=== PATIENT | female | born 1965 | race Caucasian/White ===

== ENCOUNTER → 2017-01-02 | Outpatient (CLI) | payer MEDICAID, OTHER ==
[~2017-01-02] MED LIST: CLAR1TAB2 PO; CYMB1CAP4 PO; [UNRECOGNIZED DRUG - REMARK]
--- NOTE | 2017-01-03 09:46 | REP ---
MRI RIGHT ANKLE WITHOUT CONTRAST: HISTORY: Chronic pain, twisting injury 3 years ago. Comparison radiographs, June 22, 2016. TECHNIQUE: Sagittal, axial, and coronal imaging planes are utilized for T1, proton density, and T2-weighted scans obtained in the usual fashion with and without fat saturation. MRI FINDINGS: Cortical and medullary bone signal intensity are normal. The plantar arch appears slightly flattened. No occult fracture is seen. The tibial plafond and ankle mortise appear intact. No osteochondral defect lesion is observed. T2-weighted scans demonstrate a small quantity of ankle joint fluid. There is a 0.7 cm collection of fluid adjacent to the distal talus dorsally which could be a tiny ganglion cyst. No subtalar fluid is seen. Plantar fascia appears to be intact and smooth. The Achilles tendon has a normal contour and course and signal intensity. The tibialis posterior, flexor digitorum, and flexor hallucis longus tendons appear intact medially. Laterally, the peroneus longus and brevis tendons have an intact appearance. The anterior talofibular ligament is poorly defined, consistent with prior disruption. The anterior-inferior tibiofibular ligament and the posterior talofibular and posterior inferior tibiofibular ligaments have an intact appearance. Coronal images demonstrate intact deltoid ligamentous complex. The calcaneofibular ligament is not well defined. The exam is otherwise unremarkable. IMPRESSION: 1. Mild pes planus. 2. A 7 mm fluid collection adjacent to the distal talus could be a small ganglion. 3. Evidence of prior disruption of the anterior talofibular ligament. Signed by Gurwinder Garcia MD 01/03/2017 10:14 A
== END ==
LOC: M RAD 18:27
PROVIDERS: ATTEND Orthopaedic Surgery
DX: M25.571 Pain in right ankle and joints of right foot (principal); M79.671 Pain in right foot; M21.41 Flat foot [pes planus] (acquired), right foot

== ENCOUNTER 2017-02-14 11:45 | Outpatient (RCR) | payer MEDICAID, OTHER | END 2017-03-03 | LOC: M PT 11:45 | PROVIDERS: ATTEND Orthopaedic Surgery | DX: Z51.89 Encounter for other specified aftercare (principal); S86.311A Strain of muscle(s) and tendon(s) of peroneal muscle group at lower leg level, right leg, initial encounter; X58.XXXA Exposure to other specified factors, initial encounter; Y92.9 Unspecified place or not applicable; Y93.9 Activity, unspecified; Y99.9 Unspecified external cause status ==

== ENCOUNTER 2017-03-07 13:18 | Outpatient (RCR) | payer OTHER | END 2017-04-03 | LOC: M PT 13:18 | PROVIDERS: ATTEND Orthopaedic Surgery | DX: Z51.89 Encounter for other specified aftercare (principal); S86.311A Strain of muscle(s) and tendon(s) of peroneal muscle group at lower leg level, right leg, initial encounter; X58.XXXA Exposure to other specified factors, initial encounter; Y92.9 Unspecified place or not applicable; Y93.9 Activity, unspecified; Y99.9 Unspecified external cause status ==

== ENCOUNTER 2017-05-31 14:30 | Outpatient (RCR) | payer OTHER | END 2017-06-03 | LOC: M PT 14:30 | PROVIDERS: ATTEND Orthopaedic Surgery | DX: Z51.89 Encounter for other specified aftercare (principal); S86.311D Strain of muscle(s) and tendon(s) of peroneal muscle group at lower leg level, right leg, subsequent encounter; X58.XXXD Exposure to other specified factors, subsequent encounter; Y92.9 Unspecified place or not applicable; Y93.9 Activity, unspecified; Y99.9 Unspecified external cause status ==

== ENCOUNTER 2017-07-02 13:00 | Outpatient (RCR) | payer OTHER | END 2017-07-04 | LOC: M PT 13:00 | PROVIDERS: ATTEND Orthopaedic Surgery | DX: Z51.89 Encounter for other specified aftercare (principal); S86.311D Strain of muscle(s) and tendon(s) of peroneal muscle group at lower leg level, right leg, subsequent encounter; X58.XXXD Exposure to other specified factors, subsequent encounter; Y92.9 Unspecified place or not applicable; Y93.9 Activity, unspecified; Y99.9 Unspecified external cause status ==

== ENCOUNTER 2017-07-05 13:00 | Outpatient (RCR) | payer OTHER | END 2017-08-03 | LOC: M PT 13:00 | PROVIDERS: ATTEND Orthopaedic Surgery | DX: Z51.89 Encounter for other specified aftercare (principal); S86.311D Strain of muscle(s) and tendon(s) of peroneal muscle group at lower leg level, right leg, subsequent encounter; X58.XXXD Exposure to other specified factors, subsequent encounter; Y92.9 Unspecified place or not applicable; Y93.9 Activity, unspecified; Y99.9 Unspecified external cause status ==

== ENCOUNTER 2017-10-19 10:31 | Emergency (ER) | payer MEDICAID, OTHER ==
[~2017-10-19] VITALS: Ht 147.3 cm; Wt 62.3 kg
[2017-10-19 10:32] VITALS: BP 107/76
[2017-10-19] MEDS ORDERED: CYMB60CA3 (10:44)
[2017-10-19] MEDS ORDERED: ZYRT10CA PO (10:44)
[2017-10-19] MEDS ORDERED: [UNRECOGNIZED DRUG - CODE] (10:44)
[2017-10-19] MEDS ORDERED: HYDR-3363 (10:44)
[2017-10-19] MEDS ORDERED: PILO5TAB3 (10:44)
[2017-10-19] MEDS ORDERED: TYLE325C PO (10:58)
== END 2017-10-19 11:05 | disposition home or self-care (01) ==
LOC: M ED 10:31
DX: S00.93XA Contusion of unspecified part of head, initial encounter (principal); S70.11XA Contusion of right thigh, initial encounter; W10.9XXA Fall (on) (from) unspecified stairs and steps, initial encounter; Y92.009 Unspecified place in unspecified non-institutional (private) residence as the place of occurrence of the external cause; Y93.89 Activity, other specified; Y99.8 Other external cause status; F17.210 Nicotine dependence, cigarettes, uncomplicated; F99 Mental disorder, not otherwise specified; Z79.899 Other long term (current) drug therapy; Z88.8 Allergy status to other drugs, medicaments and biological substances; Z88.2 Allergy status to sulfonamides; Z88.1 Allergy status to other antibiotic agents; Z88.5 Allergy status to narcotic agent

== ENCOUNTER → 2017-12-23 | Outpatient (CLI) | payer OTHER, MEDICAID | LOC: M WUC 15:41 | DX: M25.541 Pain in joints of right hand (principal) | CPT/HCPCS: 73130 ==

== ENCOUNTER → 2019-01-10 | Outpatient (CLI) | payer OTHER ==
[~2019-01-10] MED LIST changes: +CYMB60CA3; +HYDR-3363; +PILO5TAB3; +TYLE325C PO; +ZYRT10CA PO; +[UNRECOGNIZED DRUG - CODE]
[2019-01-10 17:12] LABS: BASO % 0.7 % (0.0-1.0); EOS # 0.2 10^3/uL (0.0-0.50); EOS % 4.4 % (0.0-3.0); HEMATOCRIT 41.9 % (36.0-47.0); LYMPH # 1.6 10^3/uL (1.5-4.5); LYMPH % 38.6 % (24.0-44.0); MEAN CORPUSCULAR HEMOGLOBIN 31.3 pg (27.0-33.0); MEAN CORPUSCULAR HGB CONC 33.4 g/dl (32.0-36.5); MEAN CORPUSCULAR VOLUME 93.5 fl (80.0-96.0); MONO # 0.4 10^3/uL (0.0-0.8); MONO % 9.3 % (0.0-5.0); NEUTROPHILS # 1.9 10^3/uL (1.8-7.7); NEUTROPHILS % 46.8 % (36.0-66.0); PLATELET COUNT, AUTOMATED 227 10^3/uL (150-450); RED BLOOD COUNT 4.48 10^6/uL (4.00-5.40); WHITE BLOOD COUNT 4.1 10^3/uL (4.0-10.0)
== END ==
LOC: M LAB 16:30
PROVIDERS: ATTEND Physician Assistant Medical
DX: D72.819 Decreased white blood cell count, unspecified (principal)

== ENCOUNTER → 2019-06-24 | Outpatient (CLI) | payer OTHER ==
--- NOTE | 2019-06-24 15:31 | REP ---
BILATERAL MAMMOGRAM WITH 3D TOMOSYNTHESIS: No comparison studies available. No family history of breast cancer. Tyrer-Cuzick lifetime risk of breast cancer 7.2%. MLO and CC views of the bilateral breasts performed with 3D tomosynthesis. There is mild to moderate fairly symmetrical fibroglandular tissue bilaterally. In the lateral right breast there is an oval nodule which is fairly well circumscribed and appears to contain two small calcifications. Maximum diameter is approximately 8 mm. No other mass is seen bilaterally and there is no other evidence of clustered microcalcifications. IMPRESSION: BIRADS 0: BI-RADS/ACR category 0 mammogram, Incomplete: Need additional imaging evaluation and/or prior mammograms for comparison. Oval fairly well circumscribed nodule outer right breast 8 mm in maximum diameter containing two tiny calcifications. I recommend spot compression views and ultrasound to further evaluate. This mammogram was interpreted with the aid of an FDA-approved computer-aided detection system. The patient states she has not had a clinical breast exam in over a year. The patient letter being requested is M0. Electronically Signed by Rolando Lewis MD 06/26/2019 10:46 A
--- NOTE | 2019-06-24 16:24 | REP ---
HISTORY: Dyspareunia. COMPARISON: 06/18/2017 The prior examination was obtained using transvesical and transvaginal imaging with transvaginal imaging from the prior exam showing uterine myomatous changes. Today's examination was obtained using transvesical technique only. This limits the exam. The uterus measures 6.6 x 2.4 x 3.6 cm. The endometrial echo complex is not abnormally thickened. Its greatest thickness is 2 mm. Both ovaries were normal in size, shape and echo pattern. The right ovary measured 1.9 x 1.5 x 1.5 cm and the left ovary measured 2 x 1.6 x 1.9 cm. No free fluid is seen in the pelvis. The urinary bladder measured 10 x 6 x 9 cm. IMPRESSION: Unremarkable transvesical pelvic ultrasound but with limitations as described above. Electronically Signed by Jason Hinkle DO 06/24/2019 05:20 P
== END ==
LOC: M RAD 12:39
PROVIDERS: ATTEND Advanced Practice Midwife
DX: Z12.31 Encounter for screening mammogram for malignant neoplasm of breast (principal); N94.12 Deep dyspareunia

== ENCOUNTER → 2019-07-14 | Outpatient (CLI) | payer OTHER ==
--- NOTE | 2019-07-14 11:41 | REP ---
DIAGNOSTIC MAMMOGRAM RIGHT BREAST WITH RIGHT BREAST ULTRASOUND: Multiple spot compression views right breast performed. Correlation made with recent baseline mammogram, 06/24/2019. The spot compression views confirm the presence of a smoothly marginated oval nodule in the outer right breast at about the 8-o'clock position, measuring 7-8 mm in maximum diameter. It contains a single well-circumscribed small calcification. Real-time sonographic evaluation of outer right breast performed with special attention paid to the 8-o'clock region. At 9 o'clock, two adjacent small hypoechoic nodules are seen measuring 4 x 3 x 3 mm and 3 x 3 x 3 mm. There is an adjacent oval hypoechoic nodule also seen at the 9-o'clock level measuring 4 x 2 x 4 mm. At 8-o'clock position, there is an oval hypoechoic nodule measuring 5 x 3 x 6 mm, likely corresponding to the mammographic abnormality. IMPRESSION: BIRADS 3: BI-RADS/ACR category 3 mammogram. Probably Benign Findings. ACR 3 probably benign. At 8-o'clock position right breast in the mid third of the breast, there is an oval, well-circumscribed nodule containing a single small well-circumscribed coarse calcification. This is solid by ultrasound. This most likely represents a fibroadenoma. In the adjacent 9-o'clock region, there are three hypoechoic nodules all measuring 3-4 mm in maximum diameter. I suspect these also represent fibroadenomas. I would recommend followup ultrasound in 6 months to ensure stability. The patient letter being requested is M3. Electronically Signed by Rolando Lewis MD 07/15/2019 11:17 A
== END ==
LOC: M RAD 09:40
PROVIDERS: ATTEND Advanced Practice Midwife
DX: R92.2 Inconclusive mammogram (principal); R92.1 Mammographic calcification found on diagnostic imaging of breast; N63.10 Unspecified lump in the right breast, unspecified quadrant

== ENCOUNTER → 2019-11-27 | Outpatient (CLI) | payer OTHER | LOC: M LAB 14:37 | PROVIDERS: ATTEND Optometrist | DX: E11.9 Type 2 diabetes mellitus without complications (principal) ==

== ENCOUNTER → 2020-06-11 | Outpatient (CLI) | payer OTHER ==
[2020-07-25 15:53] LABS: HEMOGLOBIN A1c 5.7 %
== END ==
LOC: M LAB 14:58
PROVIDERS: ATTEND Physician Assistant
DX: R73.01 Impaired fasting glucose (principal)

== ENCOUNTER 2023-07-18 07:37 | Day surgery (SDC) | payer OTHER ==
[~2023-07-18] VITALS: Ht 147.3 cm; Wt 64.0 kg
[~2023-07-18 07:37] MED LIST changes: +ATOR1TAB21 PO; -CYMB60CA3; +CYMB60CA4; +DULO1CAP6 PO; +LEVO50TA5 PO; +MECL-136 PO; +MIDAZOLAM INJ 2MG/2ML VIAL As Ordered ONE; +PHENYLEPHRINE 10% OPHTH SOL 5ML OD PRN; +fentaNYL 100 MCG/2 ML INJECTION As Ordered ONE
[2023-07-18] MEDS: OFLOXACIN 0.3 % (OCUFLOX) OPTH SOL 5ML OD ONE (08:00)
[2023-07-18] MEDS: TROPICAMIDE 1% OPHTH SOLN 15ML OD SCH (08:18)
[2023-07-18] MEDS: PHENYLEPHRINE 2.5% OPHTH SOL 2ML OD SCH (08:18)
[2023-07-18] MEDS: CYCLOPENTOLATE 1% OPHTH SOLN 2ML BTL OD SCH (08:18)
[2023-07-18] MEDS: LIDOCAINE 3.5 % 1ML OPHTH TOPICAL GEL OU ONE (08:18)
[2023-07-18] MEDS: BSS IRRIG/VANCO(10MG)/TOBRA(5MG)/EPINEPH(1:1000-0.5CC)500ML BAG-ORONLY IR ONE (09:55)
[2023-07-18] MEDS: LIDOCAINE 1% SDV 5ML VIAL As Ordered ONE (09:56)
[2023-07-18] MEDS: CEFUROXIME 1MG/0.1ML INTRACAMERAL INJ As Ordered ONE (09:56)
[2023-07-18 10:58] VITALS: BP 131/74; TEMP 96.8; O2SAT 95
== END 2023-07-18 10:58 | disposition home or self-care (01) ==
LOC: M SDC 07:37
PROVIDERS: ATTEND Ophthalmology
DX: H26.9 Unspecified cataract (principal); E03.9 Hypothyroidism, unspecified; E78.00 Pure hypercholesterolemia, unspecified; M35.00 Sjogren syndrome, unspecified; Z79.899 Other long term (current) drug therapy; Z79.890 Hormone replacement therapy; Z87.891 Personal history of nicotine dependence; Z88.6 Allergy status to analgesic agent; Z88.5 Allergy status to narcotic agent; Z88.2 Allergy status to sulfonamides; Z91.048 Other nonmedicinal substance allergy status
CPT/HCPCS: 66984; 92015; J0697; J2250; J3010; V2788

== ENCOUNTER 2023-08-28 06:06 | Day surgery (SDC) | payer OTHER ==
[~2023-08-28] VITALS: Ht 147.3 cm; Wt 63.4 kg
[~2023-08-28 06:06] MED LIST changes: +BSS IRRIG/VANCO(10MG)/TOBRA(5MG)/EPINEPH(1:1000-0.5CC)500ML BAG-ORONLY IR ONE; +CYCLOPENTOLATE 1% OPHTH SOLN 2ML BTL OS SCH; +LIDOCAINE 3.5 % 1ML OPHTH TOPICAL GEL OU ONE; -MIDAZOLAM INJ 2MG/2ML VIAL As Ordered ONE; +OFLOXACIN 0.3 % (OCUFLOX) OPTH SOL 5ML OS ONE; -PHENYLEPHRINE 10% OPHTH SOL 5ML OD PRN; +PHENYLEPHRINE 10% OPHTH SOL 5ML OS PRN; +PHENYLEPHRINE 2.5% OPHTH SOL 2ML OS SCH; +TROPICAMIDE 1% OPHTH SOLN 15ML OS SCH; -fentaNYL 100 MCG/2 ML INJECTION As Ordered ONE
[2023-08-28] MEDS ORDERED: LIDOCAINE 1% SDV 5ML VIAL As Ordered ONE (06:34)
[2023-08-28] MEDS ORDERED: CEFUROXIME 1MG/0.1ML INTRACAMERAL INJ As Ordered ONE (06:35)
[2023-08-28] MEDS ORDERED: LIDOCAINE 1% SDV 5ML VIAL SC PRN (06:35)
[2023-08-28] MEDS ORDERED: MIDAZOLAM INJ 2MG/2ML VIAL As Ordered ONE (06:55)
[2023-08-28] MEDS ORDERED: fentaNYL 100 MCG/2 ML INJECTION As Ordered ONE (06:55)
[2023-08-28 09:10] VITALS: BP 93/61; TEMP 98.3; O2SAT 99
== END 2023-08-28 09:10 | disposition home or self-care (01) ==
LOC: M SDC 06:06
PROVIDERS: ATTEND Ophthalmology
DX: H25.12 Age-related nuclear cataract, left eye (principal); E78.00 Pure hypercholesterolemia, unspecified; E03.9 Hypothyroidism, unspecified; F41.9 Anxiety disorder, unspecified; F32.A Depression, unspecified; M35.00 Sjogren syndrome, unspecified; Z88.6 Allergy status to analgesic agent; Z88.5 Allergy status to narcotic agent; Z88.2 Allergy status to sulfonamides; Z88.8 Allergy status to other drugs, medicaments and biological substances; Z79.899 Other long term (current) drug therapy; Z79.890 Hormone replacement therapy; Z87.891 Personal history of nicotine dependence
CPT/HCPCS: 66984; 92015; J0697; J2250; J3010; V2788

== ENCOUNTER → 2023-12-31 | Outpatient (CLI) | payer OTHER ==
[~2023-12-31] MED LIST changes: -BSS IRRIG/VANCO(10MG)/TOBRA(5MG)/EPINEPH(1:1000-0.5CC)500ML BAG-ORONLY IR ONE; -CYCLOPENTOLATE 1% OPHTH SOLN 2ML BTL OS SCH; -LIDOCAINE 3.5 % 1ML OPHTH TOPICAL GEL OU ONE; -OFLOXACIN 0.3 % (OCUFLOX) OPTH SOL 5ML OS ONE; -PHENYLEPHRINE 10% OPHTH SOL 5ML OS PRN; -PHENYLEPHRINE 2.5% OPHTH SOL 2ML OS SCH; -TROPICAMIDE 1% OPHTH SOLN 15ML OS SCH
== END ==
LOC: M WHC 14:21
PROVIDERS: ATTEND Nurse Practitioner Family
DX: N63.20 Unspecified lump in the left breast, unspecified quadrant (principal)

== ENCOUNTER 2024-05-03 16:02 | Inpatient (IN) | payer OTHER ==
[~2024-05-03] VITALS: Ht 142.2 cm; Wt 56.2 kg
[2024-05-03 18:48] LABS: BASO % 0.3 % (0.0-1.0); EOS % 0.4 % (0.0-3.0); HEMOGLOBIN 11.7 g/dl (12.0-15.5); LYMPH # 0.9 10^3/uL (1.5-5.0); MEAN CORPUSCULAR HEMOGLOBIN 31.3 pg (27.0-33.0); MEAN CORPUSCULAR HGB CONC 33.4 g/dl (32.0-36.5); MEAN CORPUSCULAR VOLUME 93.6 fl (80.0-96.0); MONO # 0.4 10^3/uL (0.0-0.8); MONO % 6.1 % (2.0-8.0); NEUTROPHILS # 5.7 10^3/uL (1.5-8.5); NEUTROPHILS % 80.1 % (36.0-66.0); PLATELET COUNT, AUTOMATED 278 10^3/uL (150-450); RED BLOOD COUNT 3.74 10^6/uL (4.00-5.40); WHITE BLOOD COUNT 7.2 10^3/uL (4.0-10.0)
[2024-05-03] MEDS: fentaNYL 100 MCG/2 ML INJECTION IV ONE (18:52)
[2024-05-03] MEDS: ONDANSETRON 4MG 2ML VIAL IV ONE (18:53)
[2024-05-03 18:57] LABS: ERYTHROCYTE SEDIMENTATION RATE 107 mm/hr (0-30)
[2024-05-03] MEDS ORDERED: ISOVUE-370 76% 100ML VIAL As Ordered ONE (19:34)
[2024-05-03] MEDS: ENOXAPARIN 40MG/0.4ML SYRINGE (J1650 PER 10MG) SC SCH (21:00)
[2024-05-03] MEDS ORDERED: MOM 30ML SUSPENSION UDC PO PRN (22:00)
[2024-05-03] MEDS ORDERED: HYDROMORPHONE HCL 0.5 MG/ 0.5 ML SYRINGE IV PRN ×2 (22:05)
[2024-05-03] MEDS ORDERED: ONDANSETRON 4MG 2ML VIAL IV PRN (22:05)
[2024-05-03] MEDS: traMADol 50 MG TAB PO ONE (22:45)
[2024-05-03] MEDS: NS 1,000 ML IV SCH (22:45)
[2024-05-03] MEDS ORDERED: K2 P1TAB PO (23:16)
[2024-05-03] MEDS ORDERED: HYDR-3363 PO (23:16)
[2024-05-03] MEDS ORDERED: HOME MED LIST COMPLETE! XX SCH (23:20)
[2024-05-03] MEDS ORDERED: MECLIZINE 12.5 MG TAB PO PRN (23:30)
[2024-05-04 01:08] VITALS: BP 103/69; TEMP 98.4; O2SAT 94
[2024-05-04] MEDS: DULoxetine 30MG CAPSULE (CYMBALTA) PO SCH (01:18)
[2024-05-04] MEDS: ATORVASTATIN 20 MG TAB PO SCH (01:18)
[2024-05-04] MEDS: HYDROMORPHONE HCL 0.5 MG/ 0.5 ML SYRINGE IV PRN ×2 (01:54→05:29)
[2024-05-04 04:26] VITALS: BP 100/70; TEMP 98.1; O2SAT 95
[2024-05-04] MEDS: LEVOTHYROXINE 50MCG TABLET (0.05MG) PO SCH (04:43)
[2024-05-04] MEDS: traMADol 50 MG TAB PO PRN (04:44)
[2024-05-04] MEDS: NEOSPORIN TOP OINT 15GM TOP SCH (06:55)
[2024-05-04 07:18] LABS: HEMATOCRIT 28.4 % (36.0-47.0); MEAN CORPUSCULAR HEMOGLOBIN 31.4 pg (27.0-33.0); MEAN CORPUSCULAR HGB CONC 33.1 g/dl (32.0-36.5); PLATELET COUNT, AUTOMATED 239 10^3/uL (150-450); RED BLOOD COUNT 2.99 10^6/uL (4.00-5.40); WHITE BLOOD COUNT 6.3 10^3/uL (4.0-10.0)
[2024-05-04 07:22] LABS: HEMOGLOBIN 9.4 g/dl (12.0-15.5)
[2024-05-04] MEDS: ACETAMINOPHEN TAB 650MG DOSE (2X325MG) PO PRN (07:34)
[2024-05-04 07:38] LABS: ALBUMIN 1.9 G/DL (3.2-5.2); ALKALINE PHOSPHATASE 173 U/L (46-116); ALT/SGPT 30 U/L (7.0-40); AST/SGOT 56 U/L (<34); BILIRUBIN,TOTAL 0.2 MG/DL (0.3-1.2); BLOOD UREA NITROGEN 14 MG/DL (9-23); CALCIUM LEVEL 8.3 MG/DL (8.3-10.6); CARBON DIOXIDE LEVEL 25 MMOL/L (20-31); CHLORIDE LEVEL 104 MMOL/L (98-107); CREATININE FOR GFR 0.45 MG/DL (0.55-1.30); GLOMERULAR FILTRATION RATE > 60.0 (>45); GLUCOSE, FASTING 141 MG/DL (74-106); MAGNESIUM LEVEL 1.8 MG/DL (1.8-2.4); POTASSIUM SERUM 3.5 MMOL/L (3.5-5.1); SODIUM LEVEL 133 MMOL/L (136-145); TOTAL PROTEIN 5.5 G/DL (5.7-8.2)
[2024-05-04 08:16] VITALS: BP 94/61; TEMP 98.2; O2SAT 95
[2024-05-04] MEDS: MIRALAX *UNIT DOSE* 17GM PACKET PO SCH (09:06)
[2024-05-04] MEDS ORDERED: oxyCODONE 5MG TAB PO PRN (10:45)
[2024-05-04] MEDS: GABAPENTIN 100 MG CAP PO SCH (11:35)
[2024-05-04 13:15] VITALS: BP 115/68; TEMP 98.2; O2SAT 96
[2024-05-04] MEDS: oxyCODONE 5MG TAB PO PRN (13:19)
[2024-05-04] MEDS ORDERED: HEPARIN SOD (PORCINE) 5000UNITS/ML 1ML VIAL/SYRINGE SQ SCH (15:35)
[2024-05-04] MEDS: ACETAMINOPHEN 500 MG TAB PO SCH (15:43)
[2024-05-04] MEDS: ARTIFICIAL TEARS DROPS 15ML BTL (VISINE DRY RELIEF) OU PRN (15:44)
[2024-05-04 20:00] VITALS: BP 108/68; TEMP 98.1; O2SAT 92
[2024-05-04] MEDS: HYDROMORPHONE HCL 0.5 MG/ 0.5 ML SYRINGE IV ONE (22:03)
[2024-05-05] VITALS: BP 104/67; TEMP 97.9; O2SAT 96
[2024-05-05 04:00] VITALS: BP 99/64; TEMP 98.4; O2SAT 94
[2024-05-05 08:11] VITALS: BP 98/64; TEMP 98.2; O2SAT 93
[2024-05-05 12:53] VITALS: BP 99/64; TEMP 98.2; O2SAT 93
[2024-05-05] MEDS: ALPRAZolam 0.5 MG TAB PO ONE (17:07)
[2024-05-05] MEDS ORDERED: PROHANCE 279.3MG/ML 5ML VIAL As Ordered ONE (19:04)
[2024-05-05 21:17] VITALS: BP 100/64; TEMP 98.1; O2SAT 95
[2024-05-06] VITALS: BP 99/60; TEMP 98.2; O2SAT 97
[2024-05-06 04:00] VITALS: BP 109/68; TEMP 98.2; O2SAT 91
[2024-05-06 07:06] LABS: HEMATOCRIT 28.3 % (36.0-47.0); HEMOGLOBIN 9.2 g/dl (12.0-15.5); MEAN CORPUSCULAR HEMOGLOBIN 30.6 pg (27.0-33.0); MEAN CORPUSCULAR HGB CONC 32.5 g/dl (32.0-36.5); PLATELET COUNT, AUTOMATED 264 10^3/uL (150-450); RED BLOOD COUNT 3.01 10^6/uL (4.00-5.40); WHITE BLOOD COUNT 5.5 10^3/uL (4.0-10.0)
[2024-05-06 08:15] VITALS: BP 109/69; TEMP 98.4; O2SAT 94
[2024-05-06] MEDS ORDERED: ANAS1TAB2 PO (09:01)
[2024-05-06 12:33] VITALS: BP 99/63; TEMP 98.1; O2SAT 93
[2024-05-06 21:24] VITALS: BP 95/63; TEMP 97.7; O2SAT 92
[2024-05-07 04:46] VITALS: BP 121/79; TEMP 98.2; O2SAT 90
[2024-05-07 08:02] VITALS: BP 106/66; TEMP 97.9; O2SAT 95
[2024-05-07] MEDS ORDERED: oxyCODONE 5MG TAB PO PRN (10:25)
[2024-05-07] MEDS: oxyCODONE 5MG TAB PO PRN (10:36)
[2024-05-07 13:30] VITALS: BP 104/66; TEMP 97.3; O2SAT 90
[2024-05-07 17:12] VITALS: BP 104/66; TEMP 98.1; O2SAT 92
[2024-05-07 21:05] VITALS: BP 106/66; TEMP 98.1; O2SAT 93
[2024-05-07] MEDS: SALIVA SUBSTITUTE(MOUTHKOTE) BTL MT PRN (22:24)
[2024-05-08] MEDS ORDERED: NALOXONE INJ 0.4MG/1ML VIAL IV PRN (00:15)
[2024-05-08] MEDS: MORPHINE 2 MG/ML 1ML VIAL IV PRN (00:28)
[2024-05-08 05:00] VITALS: BP 100/64; TEMP 97.9; O2SAT 90
[2024-05-08 08:03] VITALS: BP 97/62; TEMP 97.5; O2SAT 91
[2024-05-08] MEDS: VANCOMYCIN HCL 1,000 MG, VIAL MATE ADAPTER 1 EACH in D5W 250 ML IV ONE (12:24)
[2024-05-08 12:37] VITALS: BP 101/65; TEMP 97.5; O2SAT 92
[2024-05-08 16:36] VITALS: BP 103/65; TEMP 97.9; O2SAT 91
[2024-05-08] MEDS: VANCOMYCIN HCL 750 MG, VIAL MATE ADAPTER 1 EACH in D5W 250 ML IV SCH (16:50)
[2024-05-08] MEDS: GABAPENTIN 300 MG CAP PO SCH (16:50)
[2024-05-08 20:11] VITALS: BP 110/65; TEMP 97.9; O2SAT 92
[2024-05-09 04:13] VITALS: BP 109/69; TEMP 96.9; O2SAT 93
[2024-05-09 07:31] LABS: BASO % 0.3 % (0.0-1.0); EOS # 0.1 10^3/uL (0.0-0.5); EOS % 1.3 % (0.0-3.0); HEMATOCRIT 29.4 % (36.0-47.0); HEMOGLOBIN 9.7 g/dl (12.0-15.5); LYMPH % 13.6 % (24.0-44.0); MEAN CORPUSCULAR HEMOGLOBIN 30.9 pg (27.0-33.0); MEAN CORPUSCULAR VOLUME 93.6 fl (80.0-96.0); MONO # 0.6 10^3/uL (0.0-0.8); MONO % 8.1 % (2.0-8.0); NEUTROPHILS # 5.4 10^3/uL (1.5-8.5); NEUTROPHILS % 73.3 % (36.0-66.0); PLATELET COUNT, AUTOMATED 278 10^3/uL (150-450); RED BLOOD COUNT 3.14 10^6/uL (4.00-5.40); WHITE BLOOD COUNT 7.4 10^3/uL (4.0-10.0)
[2024-05-09 07:33] LABS: HEMATOCRIT 29.4 % (36.0-47.0); HEMOGLOBIN 9.6 g/dl (12.0-15.5); MEAN CORPUSCULAR HEMOGLOBIN 30.6 pg (27.0-33.0); MEAN CORPUSCULAR HGB CONC 32.7 g/dl (32.0-36.5); MEAN CORPUSCULAR VOLUME 93.6 fl (80.0-96.0); PLATELET COUNT, AUTOMATED 273 10^3/uL (150-450); RED BLOOD COUNT 3.14 10^6/uL (4.00-5.40); WHITE BLOOD COUNT 7.4 10^3/uL (4.0-10.0)
[2024-05-09 07:55] LABS: BLOOD UREA NITROGEN 16 MG/DL (9-23); CALCIUM LEVEL 8.8 MG/DL (8.3-10.6); CARBON DIOXIDE LEVEL 25 MMOL/L (20-31); CHLORIDE LEVEL 105 MMOL/L (98-107); CREATININE FOR GFR 0.49 MG/DL (0.55-1.30); GLOMERULAR FILTRATION RATE > 60.0 (>45); GLUCOSE, FASTING 108 MG/DL (74-106); POTASSIUM SERUM 4.2 MMOL/L (3.5-5.1); SODIUM LEVEL 135 MMOL/L (136-145)
[2024-05-09 08:11] VITALS: BP 106/66; TEMP 97.9; O2SAT 90
[2024-05-09 12:00] VITALS: BP 119/73; TEMP 97; O2SAT 91
[2024-05-09] MEDS: oxyCODONE 5MG TAB PO ONE (14:30)
[2024-05-09] MEDS: CEPHALEXIN 500 MG CAP PO SCH (15:04)
[2024-05-09 16:00] VITALS: BP 114/71; TEMP 98.2; O2SAT 95
[2024-05-09] MEDS: HYDROMORPHONE HCL 0.5 MG/ 0.5 ML SYRINGE IV PRN (16:25)
[2024-05-09 20:14] VITALS: BP 112/70; TEMP 97.7; O2SAT 95
[2024-05-10 04:51] VITALS: BP 111/70; TEMP 97.9; O2SAT 94
[2024-05-10 08:00] VITALS: BP 115/72; TEMP 97; O2SAT 96
[2024-05-10 12:00] VITALS: BP 102/64; TEMP 97.3; O2SAT 92
[2024-05-10 20:18] VITALS: BP 102/63; TEMP 98.1; O2SAT 96
[2024-05-11 04:18] VITALS: BP 103/63; TEMP 98.1; O2SAT 96
[2024-05-11 11:50] VITALS: BP 103/65; TEMP 97.9; O2SAT 94
[2024-05-11 20:56] VITALS: BP 118/74; TEMP 98.9; O2SAT 95
[2024-05-12 05:20] VITALS: BP 121/74; TEMP 98.1; O2SAT 93
[2024-05-12 07:00] LABS: HEMATOCRIT 28.9 % (36.0-47.0); HEMOGLOBIN 9.4 g/dl (12.0-15.5); MEAN CORPUSCULAR HEMOGLOBIN 30.7 pg (27.0-33.0); MEAN CORPUSCULAR HGB CONC 32.5 g/dl (32.0-36.5); MEAN CORPUSCULAR VOLUME 94.4 fl (80.0-96.0); PLATELET COUNT, AUTOMATED 263 10^3/uL (150-450); RED BLOOD COUNT 3.06 10^6/uL (4.00-5.40); WHITE BLOOD COUNT 6.7 10^3/uL (4.0-10.0)
[2024-05-12] MEDS: ANASTROZOLE 1MG TABLET (PATIENT'S OWN MED) PO SCH (09:30)
[2024-05-12] MEDS: MORPHINE 15 MG SA TAB PO SCH (10:52)
[2024-05-12 12:44] VITALS: BP 96/65; TEMP 98.4; O2SAT 97
[2024-05-12] MEDS: MORPHINE 30 MG TAB **MSIR PO PRN (14:21)
[2024-05-12] MEDS: HYDROMORPHONE HCL 0.5 MG/ 0.5 ML SYRINGE IV PRN (16:56)
[2024-05-12 20:01] VITALS: BP 96/62; TEMP 98.8; O2SAT 94
[2024-05-12 23:35] VITALS: BP 125/68; TEMP 98.2; O2SAT 94
[2024-05-13] VITALS (7 sets, daily range): BP systolic 116–126; BP diastolic 61–94; TEMP 98.1–99; O2SAT 89–95
[2024-05-13] MEDS: MORPHINE 15 MG SA TAB PO SCH (08:47)
[2024-05-13] MEDS: GABAPENTIN 400MG CAP PO SCH (08:47)
[2024-05-13] MEDS: METAMUCIL (PSYLLIUM) PACKET PO SCH (09:00)
[2024-05-13] MEDS: SANTYL OINT 30GM TOP SCH (09:00)
[2024-05-13] MEDS: HYDROMORPHONE HCL 0.5 MG/ 0.5 ML SYRINGE IV PRN (11:14)
[2024-05-13] MEDS ORDERED: SENNA 8.6 MG TAB (SENOKOT) PO PRN (14:00)
[2024-05-13] MEDS: dexAMETHasone 20MG/5ML VIAL IV ONE (15:53)
[2024-05-13] MEDS: ONDANSETRON 4MG 2ML VIAL IV PRN (18:13)
[2024-05-13] MEDS: MIRALAX *UNIT DOSE* 17GM PACKET PO SCH (20:38)
[2024-05-14 03:36] LABS: PROCALCITONIN 0.19 ng/ml
[2024-05-14 05:26] VITALS: BP 118/68; TEMP 97.7; O2SAT 89
[2024-05-14 06:34] LABS: C REACTIVE PROTEIN QUANTITATIV 7.6 MG/DL (<1.0)
[2024-05-14 08:38] VITALS: BP 110/65; TEMP 97.9; O2SAT 93
[2024-05-14] MEDS: PIPERACILLIN/TAZOBACTAM SOD 3.375 GM in D5W MINI-BAG PLUS 50 ML IV SCH (09:12)
[2024-05-14] MEDS: dexAMETHasone 20MG/5ML VIAL IV SCH (09:13)
[2024-05-14] MEDS: MORPHINE 15 MG SA TAB PO SCH (09:13)
[2024-05-14] MEDS: diphenhydrAMINE CREAM 30GM TOP SCH (10:33)
[2024-05-14 10:46] LABS: BASO % 0.1 % (0.0-1.0); EOS % 0.1 % (0.0-3.0); HEMATOCRIT 26.8 % (36.0-47.0); HEMOGLOBIN 8.6 g/dl (12.0-15.5); LYMPH # 0.7 10^3/uL (1.5-5.0); LYMPH % 9.1 % (24.0-44.0); MEAN CORPUSCULAR HEMOGLOBIN 30.4 pg (27.0-33.0); MEAN CORPUSCULAR HGB CONC 32.1 g/dl (32.0-36.5); MEAN CORPUSCULAR VOLUME 94.7 fl (80.0-96.0); MONO # 0.2 10^3/uL (0.0-0.8); MONO % 2.7 % (2.0-8.0); NEUTROPHILS # 6.4 10^3/uL (1.5-8.5); NEUTROPHILS % 86.1 % (36.0-66.0); PLATELET COUNT, AUTOMATED 295 10^3/uL (150-450); RED BLOOD COUNT 2.83 10^6/uL (4.00-5.40); WHITE BLOOD COUNT 7.5 10^3/uL (4.0-10.0)
[2024-05-14 10:56] LABS: BLOOD UREA NITROGEN 18 MG/DL (9-23); CALCIUM LEVEL 9.1 MG/DL (8.3-10.6); CARBON DIOXIDE LEVEL 29 MMOL/L (20-31); CHLORIDE LEVEL 104 MMOL/L (98-107); CREATININE FOR GFR 0.48 MG/DL (0.55-1.30); GLOMERULAR FILTRATION RATE > 60.0 (>45); GLUCOSE, FASTING 159 MG/DL (74-106); POTASSIUM SERUM 4.4 MMOL/L (3.5-5.1); SODIUM LEVEL 138 MMOL/L (136-145)
[2024-05-14 12:19] VITALS: BP 111/66; TEMP 97.9; O2SAT 92
[2024-05-14 16:41] VITALS: BP 105/62; TEMP 97.9; O2SAT 93
[2024-05-14 20:14] VITALS: BP 104/64; TEMP 98.1; O2SAT 94
[2024-05-14 23:24] VITALS: BP 120/75; TEMP 97.5; O2SAT 94
[2024-05-15 05:02] VITALS: BP 110/71; TEMP 98.1; O2SAT 90
[2024-05-15 06:55] LABS: BASO % 0.1 % (0.0-1.0); HEMATOCRIT 24.9 % (36.0-47.0); HEMOGLOBIN 8.2 g/dl (12.0-15.5); LYMPH # 0.5 10^3/uL (1.5-5.0); LYMPH % 5.8 % (24.0-44.0); MEAN CORPUSCULAR HEMOGLOBIN 30.7 pg (27.0-33.0); MEAN CORPUSCULAR HGB CONC 32.9 g/dl (32.0-36.5); MEAN CORPUSCULAR VOLUME 93.3 fl (80.0-96.0); MONO # 0.3 10^3/uL (0.0-0.8); MONO % 3.9 % (2.0-8.0); NEUTROPHILS % 88.6 % (36.0-66.0); PLATELET COUNT, AUTOMATED 268 10^3/uL (150-450); RED BLOOD COUNT 2.67 10^6/uL (4.00-5.40); WHITE BLOOD COUNT 7.9 10^3/uL (4.0-10.0)
[2024-05-15 07:24] LABS: BLOOD UREA NITROGEN 26 MG/DL (9-23); CALCIUM LEVEL 8.9 MG/DL (8.3-10.6); CARBON DIOXIDE LEVEL 28 MMOL/L (20-31); CHLORIDE LEVEL 107 MMOL/L (98-107); CREATININE FOR GFR 0.53 MG/DL (0.55-1.30); GLOMERULAR FILTRATION RATE > 60.0 (>45); GLUCOSE, FASTING 153 MG/DL (74-106); POTASSIUM SERUM 4.5 MMOL/L (3.5-5.1); SODIUM LEVEL 140 MMOL/L (136-145)
[2024-05-15 07:55] VITALS: BP 107/71; TEMP 99; O2SAT 94
[2024-05-15] MEDS: AUGMENTIN 875 MG TAB PO SCH (08:45)
[2024-05-15 13:31] VITALS: BP 120/81; TEMP 103; O2SAT 92
[2024-05-15 13:36] VITALS: BP 118/80; TEMP 97.7; O2SAT 94
[2024-05-15 20:34] VITALS: BP 121/79; TEMP 98.1; O2SAT 94
[2024-05-15 23:33] VITALS: BP 107/66; TEMP 97.5; O2SAT 93
[2024-05-16 05:16] VITALS: BP 108/65; TEMP 98.2; O2SAT 93
[2024-05-16 07:01] LABS: HEMATOCRIT 27.4 % (36.0-47.0); LYMPH # 0.4 10^3/uL (1.5-5.0); LYMPH % 5.9 % (24.0-44.0); MEAN CORPUSCULAR HEMOGLOBIN 31.1 pg (27.0-33.0); MEAN CORPUSCULAR HGB CONC 32.8 g/dl (32.0-36.5); MEAN CORPUSCULAR VOLUME 94.8 fl (80.0-96.0); MONO # 0.3 10^3/uL (0.0-0.8); MONO % 4.5 % (2.0-8.0); NEUTROPHILS # 6.3 10^3/uL (1.5-8.5); NEUTROPHILS % 86.4 % (36.0-66.0); PLATELET COUNT, AUTOMATED 317 10^3/uL (150-450); RED BLOOD COUNT 2.89 10^6/uL (4.00-5.40); WHITE BLOOD COUNT 7.3 10^3/uL (4.0-10.0)
[2024-05-16 07:19] LABS: BLOOD UREA NITROGEN 31 MG/DL (9-23); CALCIUM LEVEL 8.7 MG/DL (8.3-10.6); CARBON DIOXIDE LEVEL 27 MMOL/L (20-31); CHLORIDE LEVEL 105 MMOL/L (98-107); CREATININE FOR GFR 0.48 MG/DL (0.55-1.30); GLOMERULAR FILTRATION RATE > 60.0 (>45); GLUCOSE, FASTING 134 MG/DL (74-106); POTASSIUM SERUM 4.6 MMOL/L (3.5-5.1); SODIUM LEVEL 136 MMOL/L (136-145)
[2024-05-16 08:00] VITALS: BP 105/64; TEMP 97.7; O2SAT 94
[2024-05-16 12:00] VITALS: BP 106/66; TEMP 97.9; O2SAT 94
[2024-05-16 16:00] VITALS: BP 97/56; TEMP 97.5; O2SAT 94
[2024-05-16] MEDS: IPRATROPIUM 0.5MG/ALBUTEROL 2.5MG INH SOL UD 3ML (DUONEB) NEB PRN (16:39)
[2024-05-16 19:55] VITALS: BP 104/67; TEMP 97.9; O2SAT 94
[2024-05-16] MEDS: MORPHINE 30 MG TAB **MSIR PO PRN (22:40)
[2024-05-17 00:27] VITALS: BP 110/68; TEMP 97.7; O2SAT 96
[2024-05-17] MEDS: traMADol 50 MG TAB PO ONE (01:00)
[2024-05-17 04:24] VITALS: BP 111/70; TEMP 98.1; O2SAT 95
[2024-05-17 12:13] VITALS: BP 113/71; TEMP 97.7; O2SAT 93
[2024-05-17 19:54] VITALS: TEMP 97.9; O2SAT 91
[2024-05-17 20:35] VITALS: BP 121/62
[2024-05-17 23:47] VITALS: BP 114/62; TEMP 98.2; O2SAT 92
[2024-05-18] VITALS (7 sets, daily range): BP systolic 96–121; BP diastolic 54–76; TEMP 97.5–99.1; O2SAT 89–98
[2024-05-18 11:50] LABS: INR 1.05; PARTIAL THROMBOPLASTIN TIME 24.7 SECONDS (24.8-34.2); PROTHROMBIN TIME 13.4 SECONDS (12.5-14.5)
[2024-05-18] MEDS: RIVAROXABAN 10MG TAB (XARELTO) PO SCH (17:19)
[2024-05-19 04:13] VITALS: BP 106/61; TEMP 97.9; O2SAT 93
[2024-05-19 07:41] VITALS: BP 90/58; TEMP 98.1; O2SAT 93
[2024-05-19] MEDS: LR 1,000 ML IV ONE (09:34)
[2024-05-19 11:13] VITALS: BP 102/54
[2024-05-19 11:17] VITALS: TEMP 97.9; O2SAT 95
[2024-05-19 16:00] VITALS: BP 91/64; TEMP 97.9; O2SAT 90
[2024-05-19 20:05] VITALS: BP 93/62; TEMP 98.2; O2SAT 96
[2024-05-19] MEDS: MORPHINE 30 MG TAB **MSIR PO PRN (21:03)
[2024-05-20] VITALS (8 sets, daily range): BP systolic 89–119; BP diastolic 55–72; TEMP 98.1–98.6; O2SAT 93–96
[2024-05-20] MEDS: LR 1,000 ML IV ONE (08:40)
[2024-05-20] MEDS ORDERED: NALO4SPR3 NS (13:17)
[2024-05-20] MEDS ORDERED: CYMB60CA4 PO (13:17)
[2024-05-20] MEDS ORDERED: SENO8.6T5 PO (13:17)
[2024-05-20] MEDS ORDERED: GABA-284 PO (13:17)
[2024-05-20] MEDS ORDERED: MORP15TASA PO (13:17)
[2024-05-20] MEDS ORDERED: AMOX875T2 PO (13:17)
[2024-05-20] MEDS ORDERED: MSIR30TA PO (13:17)
[2024-05-20] MEDS ORDERED: ONDA-83 PO (13:17)
[2024-05-20] MEDS ORDERED: MIRA3350 PO (13:17)
[2024-05-21] VITALS: BP 94/56; TEMP 98.1; O2SAT 96
[2024-05-21 04:00] VITALS: BP 86/53; TEMP 98.2; O2SAT 94
[2024-05-21] MEDS: LR 1,000 ML IV ONE (06:35)
[2024-05-21 07:56] LABS: BASO % 0.2 % (0.0-1.0); EOS # 0.1 10^3/uL (0.0-0.5); HEMATOCRIT 28.9 % (36.0-47.0); HEMOGLOBIN 9.3 g/dl (12.0-15.5); LYMPH # 0.5 10^3/uL (1.5-5.0); LYMPH % 9.6 % (24.0-44.0); MEAN CORPUSCULAR HEMOGLOBIN 30.8 pg (27.0-33.0); MEAN CORPUSCULAR HGB CONC 32.2 g/dl (32.0-36.5); MEAN CORPUSCULAR VOLUME 95.7 fl (80.0-96.0); MONO # 0.5 10^3/uL (0.0-0.8); MONO % 10.5 % (2.0-8.0); NEUTROPHILS # 3.7 10^3/uL (1.5-8.5); NEUTROPHILS % 75.4 % (36.0-66.0); PLATELET COUNT, AUTOMATED 218 10^3/uL (150-450); RED BLOOD COUNT 3.02 10^6/uL (4.00-5.40); WHITE BLOOD COUNT 4.9 10^3/uL (4.0-10.0)
[2024-05-21 08:06] LABS: ALBUMIN 1.5 G/DL (3.2-5.2); ALKALINE PHOSPHATASE 335 U/L (46-116); ALT/SGPT 155 U/L (7.0-40); AST/SGOT 137 U/L (<34); BILIRUBIN,TOTAL 0.3 MG/DL (0.3-1.2); BLOOD UREA NITROGEN 17 MG/DL (9-23); CARBON DIOXIDE LEVEL 29 MMOL/L (20-31); CHLORIDE LEVEL 104 MMOL/L (98-107); CREATININE FOR GFR 0.45 MG/DL (0.55-1.30); GLOMERULAR FILTRATION RATE > 60.0 (>45); GLUCOSE, FASTING 109 MG/DL (74-106); MAGNESIUM LEVEL 1.9 MG/DL (1.8-2.4); POTASSIUM SERUM 4.4 MMOL/L (3.5-5.1); SODIUM LEVEL 135 MMOL/L (136-145); TOTAL PROTEIN 4.9 G/DL (5.7-8.2)
[2024-05-21 08:25] VITALS: BP 92/53
== END 2024-05-21 08:50 | disposition home health service (06) | DRG 382 ==
LOC: M ED 16:02 → M ED INP 21:58 → M MS5PR 05-04 00:25
PROVIDERS: ADMIT Preventive Medicine Undersea and Hyperbaric Medicine; ATTEND Internal Medicine
PROC: 0HBU3ZX Excision of Left Breast, Percutaneous Approach, Diagnostic (ICD-10-PCS; 2024-05-03)
PROC: B246ZZZ Ultrasonography of Right and Left Heart (ICD-10-PCS; principal; 2024-05-12)
DX: C50.812 Malignant neoplasm of overlapping sites of left female breast (principal); J96.01 Acute respiratory failure with hypoxia; J18.9 Pneumonia, unspecified organism; C78.02 Secondary malignant neoplasm of left lung; C78.01 Secondary malignant neoplasm of right lung; M84.58XA Pathological fracture in neoplastic disease, other specified site, initial encounter for fracture; C78.7 Secondary malignant neoplasm of liver and intrahepatic bile duct; C79.51 Secondary malignant neoplasm of bone; M35.00 Sjogren syndrome, unspecified; R54 Age-related physical debility; J98.11 Atelectasis; E03.9 Hypothyroidism, unspecified; E78.5 Hyperlipidemia, unspecified; H04.123 Dry eye syndrome of bilateral lacrimal glands; F41.9 Anxiety disorder, unspecified; G89.3 Neoplasm related pain (acute) (chronic); R26.89 Other abnormalities of gait and mobility; Z17.0 Estrogen receptor positive status [ER+]; Z79.890 Hormone replacement therapy; Z79.899 Other long term (current) drug therapy; Z88.2 Allergy status to sulfonamides; Z88.5 Allergy status to narcotic agent; Z88.6 Allergy status to analgesic agent; Z87.891 Personal history of nicotine dependence; Z91.048 Other nonmedicinal substance allergy status

== ENCOUNTER 2024-05-21 21:30 | Emergency (ER) | payer OTHER ==
[~2024-05-21] VITALS: Ht 147.3 cm; Wt 56.8 kg
[~2024-05-21 21:30] MED LIST changes: +AMOX875T2 PO; +ANAS1TAB2 PO; +CYMB60CA4 PO; +GABA-284 PO; +HYDR-3363 PO; +K2 P1TAB PO; +MIRA3350 PO; +MORP15TASA PO; +MSIR30TA PO; +NALO4SPR3 NS; +ONDA-83 PO; +SENO8.6T5 PO
[2024-05-21 21:56] VITALS: BP 108/54; TEMP 99.7; O2SAT 96
[2024-05-21] MEDS: AUGMENTIN 875 MG TAB PO ONE (23:31)
[2024-05-21] MEDS: MORPHINE 15 MG SA TAB PO ONE (23:32)
[2024-05-21] MEDS: GABAPENTIN 400MG CAP PO ONE (23:32)
[2024-05-21] MEDS: DULoxetine 30MG CAPSULE (CYMBALTA) PO ONE (23:32)
== END 2024-05-22 16:35 | disposition home or self-care (01) ==
LOC: EDBD 21:30 → M ED 21:30
DX: C79.81 Secondary malignant neoplasm of breast (principal); C34.90 Malignant neoplasm of unspecified part of unspecified bronchus or lung; E03.9 Hypothyroidism, unspecified; D41.9 Neoplasm of uncertain behavior of unspecified urinary organ; F32.A Depression, unspecified; Z88.6 Allergy status to analgesic agent; Z88.5 Allergy status to narcotic agent; Z88.8 Allergy status to other drugs, medicaments and biological substances; Z91.048 Other nonmedicinal substance allergy status; Z79.02 Long term (current) use of antithrombotics/antiplatelets; Z79.83 Long term (current) use of bisphosphonates; Z79.899 Other long term (current) drug therapy

== ENCOUNTER 2024-05-25 10:31 | Inpatient (IN) | payer OTHER ==
[2024-05-23 14:44] VITALS: BP 89/46; TEMP 97.7; O2SAT 98
[~2024-05-25] VITALS: Ht 147.3 cm; Wt 56.8 kg
[2024-05-25] MEDS: MECLIZINE 25 MG TABLET PO ONE (10:58)
[2024-05-25] MEDS: ONDANSETRON 4MG ORAL DISINTEGRATING TAB PO ONE (10:58)
[2024-05-25] MEDS ORDERED: ACETAMINOPHEN TAB 650MG DOSE (2X325MG) PO PRN (12:15)
[2024-05-25] MEDS ORDERED: ONDANSETRON 4MG ORAL DISINTEGRATING TAB PO PRN (12:15)
[2024-05-25] MEDS ORDERED: FLEET ENEMA PR PRN (12:15)
[2024-05-25] MEDS: LORazepam 1 MG TAB PO PRN (15:45)
[2024-05-25] MEDS ORDERED: MECLIZINE 12.5 MG TAB PO PRN (19:45)
[2024-05-25] MEDS: PERCOCET 5MG/325MG TAB PO PRN (22:58)
[2024-05-26] MEDS: GABAPENTIN 400MG CAP PO SCH (00:21)
[2024-05-26] MEDS: LEVOTHYROXINE 50MCG TABLET (0.05MG) PO SCH (05:47)
[2024-05-26] MEDS: PERCOCET 5MG/325MG TAB PO PRN (05:48)
[2024-05-26] MEDS ORDERED: MORPHINE 30 MG TAB **MSIR PO PRN (09:00)
[2024-05-27] MEDS: SCOPOLAMINE 1MG TRANSDERMAL PATCH TOP PRN (01:49)
[2024-05-27] MEDS ORDERED: MORPHINE 10MG/0.5ML ORAL CONCENTRATE SOLUTION U/D SL PRN (07:55)
[2024-05-27] MEDS ORDERED: FUROSEMIDE 40MG/4ML VIAL IV ONE (15:50)
[2024-05-27 15:53] VITALS: BP 102/68; TEMP 98; O2SAT 98
[2024-05-27] MEDS: DIGOXIN INJ 0.5 MG/2 ML AMP IV STA (15:57)
[2024-05-27] MEDS: MIDODRINE 5 MG TAB PO SCH (15:58)
[2024-05-27] MEDS: IPRATROPIUM 0.5MG/ALBUTEROL 2.5MG INH SOL UD 3ML (DUONEB) NEB ONE (16:14)
[2024-05-27 16:19] LABS: ABG BASE EXCESS 3.6 (-2.0-2.0); ABG HCO3 25.8 MMOL/L (22.0-26.0); ABG O2 SATURATION 96.8 % (95.0-99.0); ABG PARTIAL PRESSURE CO2 30.5 mmHg (35.0-45.0); ABG PARTIAL PRESSURE O2 92.1 mmHg (75.0-100.0); ABG STANDARD HCO3 27.7 MMOL/L. (22.0-26.0); ABG TOTAL CO2 26.7 MMOL/L (23.0-31.0); ABG pH (ARTERIAL) 7.545 UNITS (7.350-7.450)
[2024-05-27] MEDS ORDERED: LACTULOSE 20GM/30ML SYRUP UDC PO ONE (16:35)
[2024-05-27 17:29] LABS: CK-MB VALUE MASS < 1.0 NG/ML (<3.6)
[2024-05-27 17:30] VITALS: BP 104/68
[2024-05-27 17:33] LABS: CPK CREATINE PHOSPHOKINASE 31 U/L (34-145); MB/CK RELATIVE INDEX 3.22 (< OR =4)
[2024-05-27] MEDS ORDERED: NALOXONE INJ 0.4MG/1ML VIAL IV PRN (17:45)
[2024-05-27 17:59] LABS: HEMATOCRIT 28.2 % (36.0-47.0); HEMOGLOBIN 9.4 g/dl (12.0-15.5); MEAN CORPUSCULAR HEMOGLOBIN 30.6 pg (27.0-33.0); MEAN CORPUSCULAR HGB CONC 33.3 g/dl (32.0-36.5); MEAN CORPUSCULAR VOLUME 91.9 fl (80.0-96.0); PLATELET COUNT, AUTOMATED 197 10^3/uL (150-450); RED BLOOD COUNT 3.07 10^6/uL (4.00-5.40); WHITE BLOOD COUNT 3.8 10^3/uL (4.0-10.0)
[2024-05-27] MEDS ORDERED: METOPROLOL TART 12.5 MG PER 1/2 TAB PO SCH (18:00)
[2024-05-27] MEDS ORDERED: METOPROLOL TART 25 MG TABLET PO SCH (18:00)
[2024-05-27] MEDS ORDERED: PILL CUTTER 1 EACH XX PRN ×2 (18:25→18:40)
[2024-05-27] MEDS: dexAMETHasone 20MG/5ML VIAL IV ONE (18:46)
[2024-05-27 18:47] VITALS: BP 125/76
[2024-05-27] MEDS: METOPROLOL TART 25 MG TABLET PO ONE (18:47)
[2024-05-27 18:48] LABS: ERYTHROCYTE SEDIMENTATION RATE 56 mm/hr (0-30)
[2024-05-27] MEDS: NS 500 ML IV ONE (18:48)
[2024-05-27] MEDS: MORPHINE 15 MG SA TAB PO ONE (18:48)
[2024-05-27 18:57] LABS: ATYPICAL LYMPH 2 % (0-5); BASOPHILS 1 % (0-1); LYMPHOCYTES 10 % (16-44); MONOCYTES 2 % (0-5); NEUTROPHILS 72 % (28-66)
[2024-05-27 18:58] LABS: HYPOCHROMASIA 2+
[2024-05-27 18:59] LABS: PLATELET ESTIMATE NORMAL (NORMAL)
[2024-05-27 19:00] LABS: SPHEROCYTES 2+
[2024-05-27 19:44] LABS: BLOOD UREA NITROGEN 18 MG/DL (9-23); CALCIUM LEVEL 9.5 MG/DL (8.3-10.6); CARBON DIOXIDE LEVEL 25 MMOL/L (20-31); CHLORIDE LEVEL 101 MMOL/L (98-107); CREATININE FOR GFR 0.51 MG/DL (0.55-1.30); GLOMERULAR FILTRATION RATE > 60.0 (>45); GLUCOSE, FASTING 122 MG/DL (74-106); POTASSIUM SERUM 4.3 MMOL/L (3.5-5.1); SODIUM LEVEL 133 MMOL/L (136-145)
[2024-05-27] MEDS ORDERED: ISOVUE-370 76% 100ML VIAL As Ordered ONE (20:31)
[2024-05-27 21:48] VITALS: O2SAT 94
[2024-05-27] MEDS: HYDROMORPHONE HCL 0.5 MG/ 0.5 ML SYRINGE IV PRN (21:48)
[2024-05-28] MEDS: MORPHINE 30 MG TAB **MSIR PO PRN (00:10)
[2024-05-28] MEDS ORDERED: LORazepam 1 MG TAB As Ordered ONE (01:44)
[2024-05-28] MEDS: MORPHINE 10MG/0.5ML ORAL CONCENTRATE SOLUTION U/D SL PRN (03:07)
[2024-05-28] MEDS: LORazepam 1 MG TAB PO PRN (05:12)
[2024-05-28] MEDS ORDERED: HYDROMORPHONE HCL 0.5 MG/ 0.5 ML SYRINGE IV PRN (07:25)
[2024-05-28] MEDS ORDERED: MIDODRINE 5 MG TAB PO SCH (08:00)
[2024-05-28] MEDS ORDERED: dexAMETHasone 20MG/5ML VIAL IV SCH (09:00)
[2024-05-28] MEDS: dexAMETHasone 2 MG TAB PO SCH (10:22)
[2024-05-28] MEDS: MORPHINE 15 MG SA TAB PO SCH (10:23)
[2024-05-28] MEDS: GABAPENTIN 400MG CAP PO SCH (10:24)
[2024-05-29] MEDS: FUROSEMIDE 100MG/10ML VIAL IV ONE (09:39)
[2024-05-29] MEDS: ARTIFICIAL TEARS DROPS 15ML BTL (VISINE DRY RELIEF) OU SCH (09:40)
[2024-05-29] MEDS: MORPHINE 30 MG TAB **MSIR PO PRN (12:22)
[2024-05-29] MEDS: ONDANSETRON 4MG ORAL DISINTEGRATING TAB PO PRN (20:02)
[2024-05-30] MEDS: SCOPOLAMINE 1MG TRANSDERMAL PATCH TOP PRN (00:17)
[2024-05-30] MEDS ORDERED: MIRALAX *UNIT DOSE* 17GM PACKET PO PRN (21:10)
[2024-05-30] MEDS: MORPHINE 10MG/0.5ML ORAL CONCENTRATE SOLUTION U/D SL PRN (23:49)
[2024-05-31] MEDS: MORPHINE 10MG/0.5ML ORAL CONCENTRATE SOLUTION U/D SL ONE (11:32)
[2024-05-31] MEDS: LORazepam 1 MG TAB PO ONE (11:32)
[2024-05-31] MEDS: MORPHINE 10MG/0.5ML ORAL CONCENTRATE SOLUTION U/D SL PRN (13:42)
[2024-06-01] MEDS: LORazepam 2 MG TAB PO ONE (12:28)
[2024-06-01] MEDS: MORPHINE 10MG/0.5ML ORAL CONCENTRATE SOLUTION U/D SL ONE (12:29)
[2024-06-01] MEDS: LORazepam 2 MG TAB PO PRN (14:31)
[2024-06-02] MEDS: ATROPINE SULFATE 1% OPHTH SOLN 2ML BTL SL PRN (15:54)
[2024-06-03] MEDS: ACETAMINOPHEN 650MG SUPP PR PRN (02:30)
== END 2024-06-03 10:12 | disposition expired | DRG 862 ==
LOC: EDBD 10:31 → M ED 10:31 → M ED INP 10:32 → UNDOADMOB 10:32 → M MS5PR 14:40 → M ED INP 14:40 → OBSVTOIN 15:46 → INTOOBSV 15:46 → OBSVTOIN 05-27 15:46 → M ED INP 05-27 15:46 → M MS5PR 05-27 15:46
PROVIDERS: ADMIT Student in an Organized Health Care Education/Training Program; ATTEND Preventive Medicine Undersea and Hyperbaric Medicine
DX: Z51.5 Encounter for palliative care (principal); R57.1 Hypovolemic shock; E43 Unspecified severe protein-calorie malnutrition; C78.01 Secondary malignant neoplasm of right lung; C78.02 Secondary malignant neoplasm of left lung; C78.7 Secondary malignant neoplasm of liver and intrahepatic bile duct; C50.912 Malignant neoplasm of unspecified site of left female breast; C79.51 Secondary malignant neoplasm of bone; E78.5 Hyperlipidemia, unspecified; Z66 Do not resuscitate; E03.9 Hypothyroidism, unspecified; R42 Dizziness and giddiness; M54.50 Low back pain, unspecified; R53.1 Weakness; Z79.890 Hormone replacement therapy; Z79.891 Long term (current) use of opiate analgesic; Z79.899 Other long term (current) drug therapy; Z88.2 Allergy status to sulfonamides; Z88.5 Allergy status to narcotic agent; Z88.6 Allergy status to analgesic agent; Z91.048 Other nonmedicinal substance allergy status

== ENCOUNTER 2024-05-25 14:00 | Outpatient (RCR) | payer OTHER | END 2024-06-03 | LOC: M ONCR 14:00 | PROVIDERS: ATTEND General Practice | DX: Z51.0 Encounter for antineoplastic radiation therapy (principal); C50.112 Malignant neoplasm of central portion of left female breast ==